=== PATIENT | male | born 1995 | race Caucasian/White ===

== ENCOUNTER 2017-08-03 16:00 | Outpatient (RCR) | payer OTHER, SELFPAY ==
--- NOTE | 2017-06-27 15:56 | HP.OTEVAL_ITS ---
Patient's Visit Information JOSE PARK is a 21 year old M, referred to Occupational Therapy by ROLANDA MACKENZIE DEREK, with a diagnosis of nondisplaced fx middle phalanx, nondisplaced fx phalanx L ring finger. Date of Evaluation: 06/22/17 Occupational Therapist: Erica Gonsalez - Subjective Subjective: Pt seen for initial occupational therapy evaluation for laceration of L hand 06/22/17. Pt cut L hand on table saw 06/01/17. Pt had sx 06/06/17 for flexor tendon repair. He had accident while at work. - Pain L hand 1 Pain Intensity Range: 1, 2 - Objective Objective/Observation: Pt had laceration of L hand, closed nondisplaced fx of middle phalanx, nondisplaced fx of phalanx of L ring finger. Pt had tendon repair and now in need of dorsal blocking splint and to follow protocol phase 1 per orders. - ROM ROM Comments: Dorsal blocking splint L hand w/ wrist in neutral, MCP's at 50' flexion, IP's full extension per orders. R hand WFL AROM. - Strength Circulation Manager: L DNT, R 110# Lateral Pinch: L DNT, R 20# - Edema Other: Edema noted L hand/digits, no pitting edema - Sensation Sensation Comments: Tingling noted 2nd digit dorsal side and 3rd digit tip of finger. monofilament L hand 3.22 - Hand/Wrist Evaluation Total Score of Pain & Functional Sections: 43 - Goals Goal:100% adherence to protocol: Yes Goal:Daily scar massage when approriate: Yes Goal:ROM equal to unaffected hand: Yes Goal:Circulation Manager/Pinch strength at least 75% of unaffected hand: Yes Goal:No pain with affected hand use: Yes Goal:PIP Circumferences equal to unaffected hand: Yes Goal:Full use of affected hand in daily activities including: Yes Goal:Improvement in sensation documented by Foster-Chhaya: Yes Goal:Decrease scar hypersensitivity: Yes - Rehabilitation General Assessment: Pt demo increased edema, pain, decreased strength and rom of L hand. Pt requires occupational therapy services to increase L hand ROM, strength, scar mngmt following protocal. Rehabilitation Potential: Good - Anticipated Interventions Anticipated Interventions: Early Active Motion, A/AAROM/PROM, Strengthening, Edema Control, Scar Care, Massage, Desensitization, Sensory Retraining, Wound Care, Modalities, Orthoses, Fine Motor Coord/Ulices, ADL Training, Home Program - Visit Plan Frequency: 2x /Week Duration: 6 Weeks General Plan: Pt requires occupational therapy services to increase L hand ROM, strength, scar mngmt following 's protocal. TEXT: Thank you for the opportunity to evaluate your patient. For Medicare and Medicare HMO plans, please review the plan of care and approve it. It will need to be FAXED BACK to us at [phone] for Medicare purposes. Please let me know if there are questions or concerns regarding this plan of care. Physician Signature: Date:
--- NOTE | 2017-07-13 18:42 | OTREVAL_ITS ---
BEN ORANTES, BEN ORANTES It has been my pleasure to treat JOSE PARK over the last 7 visits for nondisplaced fx middle phalanx, nondisplaced fx phalanx L ring finger. Please see the progress note below for an update on the occupational therapy plan of care! Subjective: Pt states doing well this date. No pain at beginning of session. Objective/Function: PIP Left IF 65 to 67 degrees flexion Plan Frequency: 2x /Week Duration: 6 Weeks Visits in this POC: 18 Plan: continue w/ prior POC following protocol. Following protocol. Pt demo limited AROM Left IF PIP flexion/extension. PROM Left IF PIP flexion 65-67 degrees. AROM other digits WFL and doing well. Demo good scar mgnmt. Anticipated Interventions Anticipated Interventions: Early Active Motion, A/AAROM/PROM, Strengthening, Edema Control, Scar Care, Massage, Desensitization, Sensory Retraining, Wound Care, Modalities, Orthoses, Fine Motor Coord/Ulices, ADL Training, Home Program Other Interventions: Following protocol. Pt demo limited AROM Left IF PIP flexion/extension. PROM Left IF PIP flexion 65-67 degrees. AROM other digits WFL and doing well. Demo good scar mgnmt. Please do not hesitate to contact me at [phone] by phone or Fax: if you have questions or concerns regarding this new plan of care! Sincerely, Erica Gonsalez
--- NOTE | 2017-10-25 11:57 | HP.OT.NRP ---
HP - Discharge Summary - Patient Information JOSE PARK was seen in my office for initial evaluation on 06/22/17. The following Plan of Care was established for this patient: Initial Frequency: 2x /Week Initial Duration: 6 Weeks Plan: waiting to hear further orders for OT after appointment 08/14. - Anticipated Interventions Anticipated Interventions: Early Active Motion, A/AAROM/PROM, Strengthening, Edema Control, Scar Care, Massage, Desensitization, Sensory Retraining, Wound Care, Modalities, Orthoses, Fine Motor Coord/Ulices, ADL Training, Home Program Other Interventions: Following protocol. Pt demo limited AROM Left IF PIP flexion/extension. PROM Left IF PIP flexion 65-67 degrees. AROM other digits WFL and doing well. Demo good scar mgnmt. This patient was last seen in our office 08/03/17. Pertinent comments regarding their Occupational therapy will appear below: D/C OT Services secondary to pt non-returning for OT. Pt L index finger PIP flexion to 70' last tx. Pt was particpating with ultrasound to decrease scar tissue. Pt did not meet all goals secondary to non-returning. D/C OT services. At this point I will be discontinuing this patient from occupational therapy. I would be happy to see this patient again in the future if found appropriate by the physician. Thank you! Erica Gonsalez
== END 2017-08-03 19:00 | disposition home or self-care (01) ==
LOC: OT 16:00
DX: S62.653D Nondisplaced fracture of middle phalanx of left middle finger, subsequent encounter for fracture with routine healing (principal); S62.605D Fracture of unspecified phalanx of left ring finger, subsequent encounter for fracture with routine healing
CPT/HCPCS: 97035; 97110; 97140; 97166; 97530